=== PATIENT | female | born 1950 | race Caucasian/White ===

== ENCOUNTER 2017-03-07 19:01 | Inpatient (IN) | payer OTHER ==
[~2017-03-07] VITALS: Ht 144.8 cm; Wt 52.2 kg
[~2017-03-07 19:01] MED LIST: CLINDAMYCIN HC300 MG PO; FLO1 PO; HYDROCORTISONE10 MG PO; LEVAQUIN750 MG PO; MIDODRINE HCL5 M1 PO; MIDODRINE HYDROC5 MG PO; OYSTER SHELL CA1 T10 PO
[2017-03-07 21:03] LABS: CALCIUM 8.7 mg/dL (8.5-10.1); CHLORIDE SERUM 105 mmol/L (98-107); CREATININE SERUM 0.8 mg/dL (0.6-1.0); GFR1 > 60 mL/min; GLUCOSE SERUM 139 mg/dL (74-106); POTASSIUM SERUM 3.7 mmol/L (3.5-5.1); SODIUM SERUM 141 mmol/L (136-145)
[2017-03-07 21:08] LABS: ALKALINE PHOSPHATASE 76 U/L (46-116); ALT/SGPT 27 U/L (14-59); AST/SGOT 25 U/L (15-37); BILIRUBIN TOTAL 0.2 mg/dL (0.20-1.00); TOTAL PROTEIN, SERUM 7.6 g/dL (6.4-8.2)
[2017-03-07 21:09] LABS: ALBUMIN 3.1 g/dL (3.4-5.0)
[2017-03-07 21:11] LABS: BASOPHIL % 1.1 % (0-2); PLATELET COUNT 340 x10^3mcL (130-400); RED CELL DISTRIBUTION WIDTH 14.3 % (11.5-14.5)
[2017-03-08] VITALS (9 sets, daily range): BP systolic 114–160; BP diastolic 56–87
[2017-03-08] MEDS ORDERED: COR10 PO (00:52)
[2017-03-08 02:30] LABS: CHOLESTEROL/HDL RATIO 3.4
[2017-03-08 02:39] LABS: T3 TOTAL 1.07 ng/mL
[2017-03-08 02:48] LABS: FREE T4 0.8 ng/dL (0.76-1.46); FREE THYROXINE INDEX 1.7 ug/dL (1.4-4.5); T4(THYROXINE) 5.3 ug/dL (4.7-13.3)
[2017-03-08 06:37] LABS: BASOPHIL % 0.8 % (0-2); PLATELET COUNT 311 x10^3mcL (130-400); RED CELL DISTRIBUTION WIDTH 14.3 % (11.5-14.5)
[2017-03-08 07:18] LABS: CALCIUM 8.6 mg/dL (8.5-10.1); CARBON DIOXIDE 32.5 mmol/L (21-32); CHLORIDE SERUM 101 mmol/L (98-107); CREATININE SERUM 0.8 mg/dL (0.6-1.0); GFR1 > 60 mL/min; GLUCOSE SERUM 83 mg/dL (74-106); MAGNESIUM 2.4 mg/dL (1.8-2.4); PHOSPHOROUS 3.7 mg/dL (2.5-4.9); POTASSIUM SERUM 3.9 mmol/L (3.5-5.1); SODIUM SERUM 138 mmol/L (136-145)
[2017-03-08 17:09] LABS: microscopic required? NO
[2017-03-08 19:25] LABS: UA SPECIFIC GRAVITY 1.025 (1.005-1.035); urine erythrocyte NEGATIVE (NEGATIVE)
[2017-03-08 21:01] LABS: AMPHETAMINE QUAL UR NONE DETECTED (NEG <=1000)
[2017-03-09 05:43] LABS: BASOPHIL % 0.5 % (0-2); PLATELET COUNT 292 x10^3mcL (130-400)
[2017-03-09 05:55] LABS: CALCIUM 8.5 mg/dL (8.5-10.1); CARBON DIOXIDE 31.3 mmol/L (21-32); CHLORIDE SERUM 102 mmol/L (98-107); CREATININE SERUM 0.8 mg/dL (0.6-1.0); GFR1 > 60 mL/min; GLUCOSE SERUM 99 mg/dL (74-106); POTASSIUM SERUM 3.9 mmol/L (3.5-5.1); SODIUM SERUM 136 mmol/L (136-145)
[2017-03-09 07:45] VITALS: BP 108/60
[2017-03-09 11:30] VITALS: BP 125/47
[2017-03-09 15:58] VITALS: BP 105/54
[2017-03-09 22:11] VITALS: BP 129/60
[2017-03-10 06:08] VITALS: BP 122/69
[2017-03-10 10:20] VITALS: BP 125/39
[2017-03-10 14:00] VITALS: BP 108/54
[2017-03-10 21:36] VITALS: BP 124/67
[2017-03-11] MEDS ORDERED: CLEOCIN HCL300 MG PO (05:18)
[2017-03-11] MEDS ORDERED: LAC PO (05:18)
[2017-03-11] MEDS ORDERED: LEVAQUIN750 MG PO (05:18)
[2017-03-11 05:55] VITALS: BP 131/76
[2017-03-11 07:11] LABS: BASOPHIL % 0.9 % (0-2); PLATELET COUNT 289 x10^3mcL (130-400); RED CELL DISTRIBUTION WIDTH 13.9 % (11.5-14.5)
[2017-03-11 07:15] LABS: CALCIUM 8.1 mg/dL (8.5-10.1); CARBON DIOXIDE 34.2 mmol/L (21-32); CHLORIDE SERUM 105 mmol/L (98-107); CREATININE SERUM 0.8 mg/dL (0.6-1.0); GFR1 > 60 mL/min; GLUCOSE SERUM 86 mg/dL (74-106); POTASSIUM SERUM 4.1 mmol/L (3.5-5.1); SODIUM SERUM 142 mmol/L (136-145)
[2017-03-11 10:05] VITALS: BP 131/76
[2017-03-11 10:24] VITALS: BP 122/64
== END 2017-03-11 14:35 | disposition home or self-care (01) | DRG 177 ==
LOC: ED 19:01 → DU 23:52 → IC 23:52 → MU 23:52 → DU 03-08 00:30 → IC 03-08 18:22 → DU 03-09 18:24 → MU 03-10 18:47
PROVIDERS: Emergency Medicine; Family Medicine; ADMIT Family Medicine
PROC: 0B21XFZ Change Tracheostomy Device in Trachea, External Approach (ICD-10-PCS; principal; 2017-03-09)
DX: J69.0 Pneumonitis due to inhalation of food and vomit (principal); K85.90 Acute pancreatitis without necrosis or infection, unspecified; J95.09 Other tracheostomy complication; T17.890A Other foreign object in other parts of respiratory tract causing asphyxiation, initial encounter; E44.0 Moderate protein-calorie malnutrition; J96.10 Chronic respiratory failure, unspecified whether with hypoxia or hypercapnia; D68.69 Other thrombophilia; Q90.9 Down syndrome, unspecified; R13.10 Dysphagia, unspecified; E03.9 Hypothyroidism, unspecified; E11.59 Type 2 diabetes mellitus with other circulatory complications; H54.42 Blindness, left eye, normal vision right eye; Z68.24 Body mass index [BMI] 24.0-24.9, adult; Y72.2 Prosthetic and other implants, materials and accessory otorhinolaryngological devices associated with adverse incidents; Y92.009 Unspecified place in unspecified non-institutional (private) residence as the place of occurrence of the external cause
CPT/HCPCS: 80307; 82962; 83880; 84439; J1956; J2250; J3360; J3490; J7030; J7620; Q0092